=== PATIENT | female | born 1930 | race African-American/Black ===

== ENCOUNTER 2018-09-07 17:15 | Observation (INO) ==
--- NOTE | 2018-09-07 18:31 | ED ---
HPI General Chief Complaint: Chest Pain Stated Complaint: chest pain, headache, cateract surg 2 wks ago Time Seen by Provider: 09/07/18 18:10 Source: patient, RN notes reviewed and old records reviewed Mode of arrival: ambulatory Limitations: no limitations History of Present Illness HPI narrative: 88-year-old female presents to the emergency department family member at bedside for evaluation of chest pain. Patient states that she had left lower chest pain that started at 4 PM. She states that it was 8/10, throbbing, without radiation. She took one nitroglycerin that she has at home and the pain resolved. However after taking the nitroglycerin, she reported headache and dizziness. She states her symptoms are now resolved. Patient reports cough and congestion for the past week. 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 She denies having any recent stress testing or cardiac catheterization. Patient does have history of colon cancer, A. fib, hypertension. She recently had cataract surgery in the right eye approximately a month ago. She is on Eliquis. Moderate severity. MD complaint: Reports chest pain STEMI Alert: No Onset (ago): hour(s) (2.5) Time: 16:00 Duration: now resolved Onset: during rest Pain location: Reports left chest Severity: moderate Severity scale (1-10): 8 Quality: Reports other (throbbing) Pain radiation: Reports none Relieving factors: nitroglycerin Exacerbating factors: nothing Associated symptoms: Reports cough; Denies nausea, vomiting, syncope, palpitations and fever Related Data Home Medications Medication Instructions Recorded Confirmed atenolol 50 mg PO DAILY 09/07/18 09/07/18 furosemide 40 mg PO DAILY 09/07/18 09/07/18 lovastatin 10 mg PO DAILY 09/07/18 09/07/18 potassium chloride 20 meq PO DAILY 09/07/18 09/07/18 apixaban [Eliquis] 5 mg PO BID 09/08/18 09/08/18 Allergies Allergy/AdvReac Type Severity Reaction Status Date / Time Sulfa (Sulfonamide Allergy Severe Hives Verified 09/07/18 17:32 Antibiotics) Review of Systems ROS: all other systems reviewed are negative [facility] Family History Family History Mother Diabetes Social History Social History Substance History: No History of Abuse Second Hand Smoke Exposure: No Smoking Status: Never smoker How Often Do You Have a Drink Containing Alcohol: Never Recent Travel in [facility] within the Last 8 Weeks: No Recent Out of Country Travel within the Last 8 Weeks: No Immunization History Tetanus Immunization: >5 Years Exam Narrative Exam Narrative: GENERAL: Well-nourished, well-developed elderly female patient, ambulatory. Afebrile. SKIN: Focused skin assessment warm/dry. HEAD: Normocephalic. Atraumatic. ENT: Mucosa pink and moist. No erythema or exudates. No uvular edema. No uvular , palatal, or tonsillar deviation. Airway patent. Nasal turbinates appear normal without nasal blood, purulent drainage or septal hematoma. Bilateral tympanic membranes clear without erythema or perforation. EYES: No scleral icterus. No injection or drainage. NECK: Supple, trachea midline. No JVD or lymphadenopathy. CARDIOVASCULAR: Regular rate and rhythm without murmurs, gallops, or rubs. Bilateral radial and pedal pulses are 2+ RESPIRATORY: Breath sounds equal bilaterally. No accessory muscle use. Lung sounds are clear to auscultation GASTROINTESTINAL: Abdomen soft, non-tender, nondistended. MUSCULOSKELETAL: No cyanosis, or edema. Bilateral upper and lower extremity strength 5/5. All extremities are neurovascularly intact. BACK: Nontender without obvious deformity. No CVA tenderness. NEUROLOGICAL: Awake and alert. Cranial nerves II through XII intact. Motor and sensory grossly within normal limits. Five out of 5 muscle strength in all muscle groups. Normal speech. Finger to nose is normal bilaterally. Heel to sumner is normal bilaterally. Course Initial Documented Vital Signs Temperature 97.5 F L 09/07/18 17:19 Pulse Rate 89 09/07/18 17:19 Respiratory Rate 18 09/07/18 17:19 Blood Pressure 105/53 L 09/07/18 17:19 Pulse Oximetry 97 09/07/18 17:19 Last Documented Vital Signs Temperature 98.0 F 09/08/18 19:54 Pulse Rate 76 09/08/18 19:54 Respiratory Rate 17 09/08/18 19:54 Blood Pressure 116/58 L 09/08/18 19:54 Pulse Oximetry 96 09/08/18 19:54 Medical Decision Making MDM Narrative Medical decision making narrative: 88-year-old female presents to the emergency department for evaluation of chest pain, now resolved. She also reports headache and dizziness that is now resolved after taking nitro. IV access obtained. CBC, CMP, CK, troponin, magnesium, PTT, PT/INR, UA are ordered and pending. Chest x-ray is ordered and pending. CT of the brain is ordered and pending EKG shows atrial fibrillation, HR 127, no acute ST changes. CBC shows no acute abnormality. CMP shows BUN 19, creatinine 1.22. Magnesium is 1.9. PTT is 27.8. PT/INR is 13.3/1.3. Chest x-ray shows no acute cardiopulmonary disease. CT of the brain shows focal area of diminished attenuation in the left álvarez radiata extending up into the subcortical white matter tracts of the high parietal convexity concerning for possible vasogenic type edema. I cannot definitively identify cortical involvement to suggest a true infarct, MRI of the brain with and without gadolinium is recommended for further characterization. MRI of the head w/wo contrast is ordered and pending. Patient will be admitted for chest pain, r/o ACS, needs MRI for abnormal CT. Medical Screen Exam Complete: Yes Emergency Medical Condition: Yes Differential Diagnosis Differential Diagnosis: ACS versus chest wall pain versus pneumonia versus electrolyte abnormality Medical Records Medical records reviewed: Yes I reviewed the patient's medical records. Lab Data Result diagrams: 09/08/18 04:08 09/08/18 04:08 Lab Results 09/07/18 09/07/18 09/07/18 Range/Units 18:21 18:21 18:21 WBC 4.2 (4.0-11.0) th/mm3 RBC 4.59 (4.00-5.30) mil/mm3 Hgb 14.7 (11.6-15.3) gm/dL Hct 43.3 (35.0-46.0) % MCV 94.4 (80.0-100.0) fL MCH 32.0 (27.0-34.0) pg MCHC 33.9 (32.0-36.0) % RDW 14.6 (11.6-17.2) % Plt Count 225 (150-450) th/mm3 MPV 7.8 (7.0-11.0) fL Neut % (Auto) 40.5 (16.0-70.0) % Lymph % (Auto) 49.6 H (9.0-44.0) % Sumner % (Auto) 7.8 (0.0-8.0) % Eos % (Auto) 1.3 (0.0-4.0) % Baso % (Auto) 0.8 (0.0-2.0) % Neut # (Auto) 1.7 L (1.8-7.7) th/mm3 Lymph # (Auto) 2.1 (1.0-4.8) th/mm3 Sumner # (Auto) 0.3 (0.0-0.9) th/mm3 Eos # (Auto) 0.1 (0.0-0.4) th/mm3 Baso # (Auto) 0.0 (0.0-0.2) th/mm3 WBC Differential . Differential Comment Auto diff final PT 13.3 H (9.8-11.6) sec INR 1.3 Ratio APTT 27.8 (24.3-30.1) sec Sodium 140 (136-145) meq/L Potassium 4.1 (3.5-5.1) meq/L Chloride 105 (98-107) meq/L Carbon Dioxide 24.1 (21.0-32.0) meq/L Anion Gap 11 (5-15) meq/L BUN 19 H (7-18) mg/dL Creatinine 1.22 H (0.50-1.00) mg/dL Estimated GFR 51 L (>89) mL/min Random Glucose 103 (74-106) mg/dL Calcium 9.9 (8.5-10.1) mg/dL Magnesium 1.9 (1.5-2.5) mg/dL Total Bilirubin 1.2 H (0.2-1.0) mg/dL AST 30 (15-37) U/L ALT 26 (10-53) U/L Alkaline Phosphatase 115 (45-117) U/L Total Creatine Kinase 118 (26-192) U/L CK-MB (CK-2) Less than 1.0 (0.5-3.6) ng/mL Troponin I Less than 0.02 L (0.02-0.05) ng/mL Total Protein 9.1 H (6.4-8.2) g/dL Albumin 3.6 (3.4-5.0) g/dL 09/08/18 09/08/18 09/08/18 Range/Units 02:59 04:08 04:08 WBC 3.7 L (4.0-11.0) th/mm3 RBC 4.30 (4.00-5.30) mil/mm3 Hgb 13.7 (11.6-15.3) gm/dL Hct 40.1 (35.0-46.0) % MCV 93.1 (80.0-100.0) fL MCH 31.9 (27.0-34.0) pg MCHC 34.2 (32.0-36.0) % RDW 14.5 (11.6-17.2) % Plt Count 199 (150-450) th/mm3 MPV 7.5 (7.0-11.0) fL Neut % (Auto) 45.7 (16.0-70.0) % Lymph % (Auto) 42.0 (9.0-44.0) % Sumner % (Auto) 10.1 H (0.0-8.0) % Eos % (Auto) 1.2 (0.0-4.0) % Baso % (Auto) 1.0 (0.0-2.0) % Neut # (Auto) 1.7 L (1.8-7.7) th/mm3 Lymph # (Auto) 1.6 (1.0-4.8) th/mm3 Sumner # (Auto) 0.4 (0.0-0.9) th/mm3 Eos # (Auto) 0.0 (0.0-0.4) th/mm3 Baso # (Auto) 0.0 (0.0-0.2) th/mm3 WBC Differential . Differential Comment Auto diff final PT (9.8-11.6) sec INR Ratio APTT (24.3-30.1) sec Sodium 143 (136-145) meq/L Potassium 3.6 (3.5-5.1) meq/L Chloride 108 H (98-107) meq/L Carbon Dioxide 26.7 (21.0-32.0) meq/L Anion Gap 8 (5-15) meq/L BUN 18 (7-18) mg/dL Creatinine 0.96 (0.50-1.00) mg/dL Estimated GFR 67 L (>89) mL/min Random Glucose 76 (74-106) mg/dL Calcium 9.1 D (8.5-10.1) mg/dL Magnesium (1.5-2.5) mg/dL Total Bilirubin 1.0 (0.2-1.0) mg/dL AST 24 (15-37) U/L ALT 23 (10-53) U/L Alkaline Phosphatase 105 (45-117) U/L Total Creatine Kinase (26-192) U/L CK-MB (CK-2) (0.5-3.6) ng/mL Troponin I Less than 0.02 L Less than 0.02 L (0.02-0.05) ng/mL Total Protein 7.9 D (6.4-8.2) g/dL Albumin 3.2 L (3.4-5.0) g/dL 09/08/18 Range/Units 04:08 WBC (4.0-11.0) th/mm3 RBC (4.00-5.30) mil/mm3 Hgb (11.6-15.3) gm/dL Hct (35.0-46.0) % MCV (80.0-100.0) fL MCH (27.0-34.0) pg MCHC (32.0-36.0) % RDW (11.6-17.2) % Plt Count (150-450) th/mm3 MPV (7.0-11.0) fL Neut % (Auto) (16.0-70.0) % Lymph % (Auto) (9.0-44.0) % Sumner % (Auto) (0.0-8.0) % Eos % (Auto) (0.0-4.0) % Baso % (Auto) (0.0-2.0) % Neut # (Auto) (1.8-7.7) th/mm3 Lymph # (Auto) (1.0-4.8) th/mm3 Sumner # (Auto) (0.0-0.9) th/mm3 Eos # (Auto) (0.0-0.4) th/mm3 Baso # (Auto) (0.0-0.2) th/mm3 WBC Differential Differential Comment PT 12.9 H (9.8-11.6) sec INR 1.3 Ratio APTT (24.3-30.1) sec Sodium (136-145) meq/L Potassium (3.5-5.1) meq/L Chloride (98-107) meq/L Carbon Dioxide (21.0-32.0) meq/L Anion Gap (5-15) meq/L BUN (7-18) mg/dL Creatinine (0.50-1.00) mg/dL Estimated GFR (>89) mL/min Random Glucose (74-106) mg/dL Calcium (8.5-10.1) mg/dL Magnesium (1.5-2.5) mg/dL Total Bilirubin (0.2-1.0) mg/dL AST (15-37) U/L ALT (10-53) U/L Alkaline Phosphatase (45-117) U/L Total Creatine Kinase (26-192) U/L CK-MB (CK-2) (0.5-3.6) ng/mL Troponin I (0.02-0.05) ng/mL Total Protein (6.4-8.2) g/dL Albumin (3.4-5.0) g/dL Imaging Data Radiologist's impression: Chest X-Ray 09/07/18 18:22 CONCLUSION: 1. No acute cardiopulmonary disease. Head CT 09/07/18 18:22 CONCLUSION: 1. Focal area of diminished attenuation in the left álvarez radiata extending up into the subcortical white matter tracts of the high parietal convexity concerning for possible vasogenic type edema. I cannot definitively identify cortical involvement to suggest a true infarct. 2. MRI of the brain with and without gadolinium is recommended for further characterization. . Head MRI 09/07/18 19:05 CONCLUSION: 1. Mild senescent changes without acute intracranial abnormality. 2. Specifically, no abnormality to correspond to findings on CT exam. No acute infarction, hemorrhage or mass. Myocardial Perfusion Scan Nuc Med 09/08/18 00:00 CONCLUSION: 1. 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 Clinical correlation is recommended. 2. No reversible defect to suggest ischemia. 3. No focal wall motion abnormality. Discharge Plan Discharge Disposition Patient Disposition: 30 Still Patient Discharge Details Diagnosis: Chest pain, Cephalgia Physicians Team ED Provider: Suraj Miner ED Midlevel Provider: Rebeca Keene Primary Care Provider: Louis Dos Santos Attending Provider: Kiara Narayan Other Providers: Faith Alamo ED Status: Left Department Discharge Information Discharge Date/Time: 09/07/18 21:23
[2018-09-07 18:53] LABS: Baso % (Auto) 0.8 % (0.0-2.0); Eos # (Auto) 0.1 th/mm3 (0.0-0.4); Eos % (Auto) 1.3 % (0.0-4.0); Hematocrit 43.3 % (35.0-46.0); Hemoglobin 14.7 gm/dL (11.6-15.3); Lymph # (Auto) 2.1 th/mm3 (1.0-4.8); Lymph % (Auto) 49.6 % (9.0-44.0); Mean Corpuscular HGB Conc 33.9 % (32.0-36.0); Mean Corpuscular Volume 94.4 fL (80.0-100.0); Mean Platelet Volume 7.8 fL (7.0-11.0); Mono # (Auto) 0.3 th/mm3 (0.0-0.9); Mono % (Auto) 7.8 % (0.0-8.0); Neut # (Auto) 1.7 th/mm3 (1.8-7.7); Neut % (Auto) 40.5 % (16.0-70.0); Platelet Count 225 th/mm3 (150-450); Red Blood Count 4.59 mil/mm3 (4.00-5.30); Red Cell Distribution Width 14.6 % (11.6-17.2); White Blood Count 4.2 th/mm3 (4.0-11.0)
--- NOTE | 2018-09-07 19:00 | XR ---
EXAM DATE: 09/07/2018 6:54 PM EDT AGE/SEX: 88 years / Female INDICATIONS: Chest pain sudden onset. CLINICAL DATA: This is the patient's initial encounter. Patient reports that signs and symptoms have been present for 1 day and indicates a pain score of 3/10. MEDICAL/SURGICAL HISTORY: None. None. COMPARISON: [facility] – [place] SING[place] AP, 10/15/2016. . FINDINGS: No significant focal pleural or parenchymal opacities. The cardiomediastinal contours are stable. Os seous structures are intact. CONCLUSION: 1. No acute cardiopulmonary disease. Electronically signed by: Tim Medeiros MD 09/07/2018 6:58 PM EDT
--- NOTE | 2018-09-07 19:01 | CT ---
EXAM DATE: 09/07/2018 6:51 PM EDT AGE/SEX: 88 years / Female INDICATIONS: Headache and weakness. CLINICAL DATA: This is the patient's initial encounter. Patient reports that signs and symptoms have been present for 1 day and indicates a pain score of 10/10. MEDICAL/SURGICAL HISTORY: Carcinoma, colon. Hypertension. A-fib. . Colon resection. RADIATION DOSE: 50.59 CTDI (mGy) COMPARISON: [facility] – [place] BRAIN [place]AST, 10/14/2016. . TECHNIQUE: CT of the head without contrast. Using automated exposure control and adjustment of the mA and/or kV according to patient size, radiation dose was kept as low as reasonably achievable to ob tain optimal diagnostic quality images. DICOM format image data is available electronically for revi ew and comparison. FINDINGS: Cerebrum: The ventricles are normal for age. Area of diminished attenuation identified in the left álvarez radiata extending up into the subcortical white matter tracts of the high parietal convexity. Findings are concerning for vasogenic type edema. Second area of hypodensity in the right occiput I b elieve represents a prominent horizontal sulci. No extraaxial fluid collections are seen. Posterior Fossa: The cerebellum and brainstem are intact. The 4th ventricle is midline. The cerebe llopontine angle is unremarkable. Extracranial: The visualized portion of the orbits is intact. Skull: The calvaria is intact. No evidence of skull fracture. CONCLUSION: 1. Focal area of diminished attenuation in the left álvarez radiata extending up into the subcortical white matter tracts of the high parietal convexity concerning for possible vasogenic type edema. I c annot definitively identify cortical involvement to suggest a true infarct. 2. MRI of the brain with and without gadolinium is recommended for further characterization. . Electronically signed by: Sagar Whittaker MD 09/07/2018 7:00 PM EDT
[2018-09-07 19:05] LABS: Activated Partial Thrombo Time 27.8 sec (24.3-30.1); INR 1.3 Ratio; Prothrombin Time 13.3 sec (9.8-11.6)
[2018-09-07 19:24] LABS: Alanine Aminotransferase 26 U/L (10-53); Albumin 3.6 g/dL (3.4-5.0); Alkaline Phosphatase 115 U/L (45-117); Anion Gap 11 meq/L (5-15); Aspartate Aminotransferase 30 U/L (15-37); Blood Urea Nitrogen 19 mg/dL (7-18); Calcium 9.9 mg/dL (8.5-10.1); Carbon Dioxide 24.1 meq/L (21.0-32.0); Chloride 105 meq/L (98-107); Creatine Kinase 118 U/L (26-192); Glomerular Filtration Rate 51 mL/min (>89); Glucose,Random 103 mg/dL (74-106); Magnesium 1.9 mg/dL (1.5-2.5); Sodium 140 meq/L (136-145); Total Protein 9.1 g/dL (6.4-8.2)
[2018-09-07 19:25] LABS: Potassium 4.1 meq/L (3.5-5.1)
[2018-09-07] MEDS ORDERED: Gadobutrol PF 10 MMOL/10 ML Vial (for RAD) IV.SIG ONE (20:28)
[2018-09-07] MEDS ORDERED: Warfarin Consult Pharmacy OTHER PRN (20:29)
[2018-09-07] MEDS ORDERED: Bisacodyl 10 MG Supp RECTAL PRN (20:35)
--- NOTE | 2018-09-07 21:02 | MR ---
EXAM DATE: 09/07/2018 8:56 PM EDT AGE/SEX: 88 years / Female INDICATIONS: Cephalgia. Abnormal CT. CLINICAL DATA: This is the patient's initial encounter. Patient reports that signs and symptoms have been present for 1 day and indicates a pain score of 5/10. MEDICAL/SURGICAL HISTORY: Carcinoma, colon. Cholecystectomy. Colon resection. COMPAR[place]: [facility] [place], 09/07/2018. . TECHNIQUE: Multiplanar, multisequence examination of the brain was performed without and with 8 ml Ga davist (gadobutrol) contrast as a single exam dose. FINDINGS: Cerebrum: Mild diffuse cerebral atrophy. The ventricles are normal for age. No evidence of midline s hift, mass lesion, hemorrhage or acute infarction. No extraaxial fluid collections are seen. The pi tuitary gland and suprasellar cistern are normal in configuration. White Matter: Mild periventricular white matter T2 prolongation. Posterior Fossa: The cerebellum and brainstem are intact. The 4th ventricle is midline. The cerebel lopontine angle is unremarkable. The cerebellar tonsils are normal in position. Diffusion Imaging: No focal areas of restricted diffusion are seen. No evidence of acute infarction . Extracranial: The visualized portions of the orbits and paranasal sinuses are unremarkable. Post Contrast: No abnormal areas of parenchymal or dural enhancement. No evidence of blood-brain ba rrier breakdown. CONCLUSION: 1. Mild senescent changes without acute intracranial abnormality. 2. Specifically, no abnormality to correspond to findings on CT exam. No acute infarction, hemorrhag e or mass. Electronically signed by: Tim Medeiros MD 09/07/2018 9:01 PM EDT
[2018-09-07] MEDS: Sod Chloride 0.9% Inj 1,000 ML IV.CONT SCH (22:52)
[2018-09-08 05:09] LABS: Eos % (Auto) 1.2 % (0.0-4.0); Hematocrit 40.1 % (35.0-46.0); Hemoglobin 13.7 gm/dL (11.6-15.3); Lymph # (Auto) 1.6 th/mm3 (1.0-4.8); Mean Corpuscular HGB Conc 34.2 % (32.0-36.0); Mean Corpuscular Hemoglobin 31.9 pg (27.0-34.0); Mean Corpuscular Volume 93.1 fL (80.0-100.0); Mean Platelet Volume 7.5 fL (7.0-11.0); Mono # (Auto) 0.4 th/mm3 (0.0-0.9); Mono % (Auto) 10.1 % (0.0-8.0); Neut # (Auto) 1.7 th/mm3 (1.8-7.7); Neut % (Auto) 45.7 % (16.0-70.0); Platelet Count 199 th/mm3 (150-450); Red Cell Distribution Width 14.5 % (11.6-17.2); White Blood Count 3.7 th/mm3 (4.0-11.0)
[2018-09-08 05:19] LABS: INR 1.3 Ratio; Prothrombin Time 12.9 sec (9.8-11.6)
[2018-09-08 05:39] LABS: Alanine Aminotransferase 23 U/L (10-53); Albumin 3.2 g/dL (3.4-5.0); Alkaline Phosphatase 105 U/L (45-117); Anion Gap 8 meq/L (5-15); Aspartate Aminotransferase 24 U/L (15-37); Blood Urea Nitrogen 18 mg/dL (7-18); Calcium 9.1 mg/dL (8.5-10.1); Carbon Dioxide 26.7 meq/L (21.0-32.0); Chloride 108 meq/L (98-107); Glomerular Filtration Rate 67 mL/min (>89); Glucose,Random 76 mg/dL (74-106); Potassium 3.6 meq/L (3.5-5.1); Sodium 143 meq/L (136-145); Total Protein 7.9 g/dL (6.4-8.2)
[2018-09-08] MEDS: Atenolol 50 MG Tablet PO SCH (08:12)
[2018-09-08] MEDS ORDERED: Furosemide 40 MG Tablet PO SCH (09:00)
[2018-09-08] MEDS ORDERED: Regadenoson Inj 0.4 MG/5 ML Syringe IV.PUSH ONE (10:51)
--- NOTE | 2018-09-08 12:15 | NM ---
EXAM DATE: 09/08/2018 12:04 PM EDT AGE/SEX: 88 years / Female INDICATIONS:Angina. . Chest pain. CLINICAL DATA: This is the patient's initial encounter. Patient reports that signs and symptoms have been present for 1 day and indicates a pain score of 8/10. MEDICAL/SURGICAL HISTORY: Hypertension. Carcinoma, colon. a-fib. Colon resection. COMPARISON: No prior exams available for comparison. DOSE: 8.7 mCi Tc 99m Myoview at rest 26.5 mCi [id number] at stress 0.4 mg Lexiscan STRESS SYMPTOMS: Short of breath. EJECTION FRACTION: >70 % TECHNIQUE: The patient underwent pharmacologic stress with infusion of prescribed dose. Continuous ECG tracing was monitored during stress. Gated SPECT imaging was performed after stress and conventi onal SPECT imaging was performed at rest. The examination was performed on a SPECT/CT scanner, both attenuation and non-corrected datasets were reviewed. FINDINGS: Distribution: The maximum perfused segment at stress is in the lateral wall. Perfusion Study: There is evidence of fixed defect involving the anterior and apical poe suggesting LAD infarct. No reversible defects are noted to suggest ischemia. Gated Study: There are intact wall motion and wall thickening without hypokinetic or dyskinetic segm ents. The ejection fraction is calculated at >70%. RISK CATEGORY: Low (<1% Annual Motality Rate) CONCLUSION: 1. 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 Clinical correlatio n is recommended. 2. No reversible defect to suggest ischemia. 3. No focal wall motion abnormality. Electronically signed by: Akhil Patel MD 09/08/2018 12:14 PM EDT
--- NOTE | 2018-09-08 12:32 | P.HP ---
History of Present Illness Primary Care Physician: Louis Dos Santos History of Present Illness: Pleasant 88-year-old female presents to the emergency department family member at bedside for evaluation of chest pain. Patient states that she had left lower chest pain that started at 4 PM. She states that it was 8/10, throbbing, without radiation. She took one nitroglycerin that she has at home and the pain resolved. However after taking the nitroglycerin, she reported headache and dizziness. She states her symptoms are now resolved. Patient reports cough and congestion for the past week. She states her hot strip finisher is Dr. Alamo. She denies having any recent stress testing or cardiac catheterization. Patient does have history of colon cancer, A. fib, hypertension. She recently had cataract surgery in the right eye approximately a month ago. She is on Eliquis. Never had a stress test or cath. Review of Systems All other systems reviewed negative except as stated in [facility]PI [facility] - History History Provided By: Patient - Medical History Medical History: Medical History (Last Reviewed 09/08/18 @ 12:32 by Kiara Narayan MD) A-fib Colon cancer HTN (hypertension) - Surgical History Surgical History: Surgical History (Last Reviewed 09/08/18 @ 12:32 by Kiara Narayan MD) History of colon resection - Family History Family History: Family History (Last Updated 09/08/18 @ 13:06 by Kiara Narayan MD) Mother Diabetes - Social History I have reviewed the patient's Social History: Yes - Tobacco History Second Hand Smoke Exposure: No Smoking Status: Never smoker - Alcohol History How Often Do You Have a Drink Containing Alcohol: Never - Substance Use History Substance History: No History of Abuse - Travel History Recent Travel in the [place] Within the Last 8 Weeks: No Recent Travel Out of the Country Within the Last 8 Weeks: No - Immunization History Tetanus Immunization: >5 Years Medications and Allergies Active Medications: Active Medications Al Hydroxide/Mg Hydroxide (Milk Of Magnesia Liq) 30 ml PO Q12H PRN PRN Reason: Mild Constipation Atenolol (Tenormin) 50 mg PO DAILY [facility] Last Admin: 09/08/18 08:12 Dose: 50 mg Bisacodyl (Dulcolax Supp) 10 mg RECTAL DAILY PRN PRN Reason: SEVERE CONSITIPATION Furosemide (Lasix) 40 mg PO DAILY [facility] Last Admin: 09/08/18 08:12 Dose: 40 mg Sodium Chloride (Ns Inj) 1,000 mls @ 45 mls/hr IV.CONT .[id number] [facility] Last Infusion: 09/08/18 11:57 Dose: 45 mls/hr Lactulose (Lactulose Liq) 30 ml PO DAILY PRN PRN Reason: SEVERE CONSITIPATION Pharmacy Profile Note (Coumadin Consult Pharmacy) 1 each OTHER UNSCH PRN PRN Reason: PHARMACY DOCUMENTATION Potassium Chloride (K-Dur) 20 meq PO DAILY [facility] Last Admin: 09/08/18 08:12 Dose: 20 meq Pravastatin Sodium (Pravachol) 10 mg PO DAILY [facility] Last Admin: 09/08/18 08:12 Dose: 10 mg Sennosides (Senokot) 17.2 mg PO Q12H PRN PRN Reason: Moderate Constipation Sodium Chloride (Ns Flush) 2 ml IV.FLUSH UNSCH PRN PRN Reason: FLUSH AFTER USING IV ACCESS Warfarin Sodium (Coumadin) 4 mg PO DAILY@1600 [facility] Allergies Allergy/AdvReac Type Severity Reaction Status Date / Time Sulfa (Sulfonamide Allergy Severe Hives Verified 09/07/18 17:32 Antibiotics) Home Medications Medication Instructions Recorded Confirmed Type atenolol 50 mg PO DAILY 09/07/18 09/07/18 History furosemide 40 mg PO DAILY 09/07/18 09/07/18 History lovastatin 10 mg PO DAILY 09/07/18 09/07/18 History potassium chloride 20 meq PO DAILY 09/07/18 09/07/18 History apixaban [Eliquis] 5 mg PO BID 09/08/18 09/08/18 History Exam Vital signs: Vital Signs 09/07/18 17:19 09/07/18 18:18 09/07/18 19:00 Temperature 97.5 F L Pulse Rate 89 102 H 85 Respiratory Rate 18 18 16 Blood Pressure 105/53 L 129/86 113/69 Pulse Oximetry 97 99 98 09/07/18 21:42 09/08/18 00:00 09/08/18 04:00 Temperature 98.0 F 97.9 F 98.2 F Pulse Rate 72 80 67 Respiratory Rate 18 17 16 Blood Pressure 125/78 118/76 121/70 Pulse Oximetry 95 95 98 09/08/18 07:29 09/08/18 09:00 Temperature 98.2 F Pulse Rate 76 83 Respiratory Rate 16 Blood Pressure 135/63 Pulse Oximetry 97 Intake & Output 09/07/18 09/08/18 09/08/18 18:59 06:59 18:59 Intake Total 450 / 450 Balance 450 / 450 Weight 80.739 kg 80.739 kg Intake: IV 450 / 450 NS Inj 1,000 ML @ 45 mls/hr IV. 450 / 450 CONT .[id number] [facility] Rx#:[id number] Other: Date of Last Bowel Movement 09/06/18 09/08/18 Weight On Admission 80.739 kg Narrative: GENERAL: Pleasant 88 yo female, appears in nad. SKIN: Warm and dry. HEAD: Atraumatic. Normocephalic. EYES: Pupils equal and round. No scleral icterus. No injection or drainage. ENT: No nasal bleeding or discharge. Mucous membranes pink and moist. NECK: Trachea midline. No JVD. CARDIOVASCULAR: Regular rate and rhythm. RESPIRATORY: No accessory muscle use. Clear to auscultation. Breath sounds equal bilaterally. GASTROINTESTINAL: Abdomen soft, non-tender, nondistended. Hepatic and splenic margins not palpable. MUSCULOSKELETAL: Extremities without clubbing, cyanosis, or edema. No obvious deformities. NEUROLOGICAL: Awake and alert. No obvious cranial nerve deficits. Motor grossly within normal limits. Five out of 5 muscle strength in the arms and legs. Normal speech. PSYCHIATRIC: Appropriate mood and affect; insight and judgment normal. Results - Labs CBC & Chem 7: 09/08/18 04:08 09/08/18 04:08 Labs: Laboratory Results - last 24 hr 09/07/18 09/07/18 09/07/18 18:21 18:21 18:21 WBC 4.2 RBC 4.59 Hgb 14.7 Hct 43.3 MCV 94.4 MCH 32.0 MCHC 33.9 RDW 14.6 Plt Count 225 MPV 7.8 Neut % (Auto) 40.5 Lymph % (Auto) 49.6 H [place] % (Auto) 7.8 Eos % (Auto) 1.3 Baso % (Auto) 0.8 Neut # (Auto) 1.7 L Lymph # (Auto) 2.1 [place] # (Auto) 0.3 Eos # (Auto) 0.1 Baso # (Auto) 0.0 WBC Differential . Differential Comment Auto diff final PT 13.3 H INR 1.3 APTT 27.8 Sodium 140 Potassium 4.1 Chloride 105 Carbon Dioxide 24.1 Anion Gap 11 BUN 19 H Creatinine 1.22 H Estimated GFR 51 L Random Glucose 103 Calcium 9.9 Magnesium 1.9 Total Bilirubin 1.2 H AST 30 ALT 26 Alkaline Phosphatase 115 Total Creatine Kinase 118 CK-MB (CK-2) Less than 1.0 Troponin I Less than 0.02 L Total Protein 9.1 H Albumin 3.6 09/08/18 09/08/18 09/08/18 02:59 04:08 04:08 WBC 3.7 L RBC 4.30 Hgb 13.7 Hct 40.1 MCV 93.1 MCH 31.9 MCHC 34.2 RDW 14.5 Plt Count 199 MPV 7.5 Neut % (Auto) 45.7 Lymph % (Auto) 42.0 [place] % (Auto) 10.1 H Eos % (Auto) 1.2 Baso % (Auto) 1.0 Neut # (Auto) 1.7 L Lymph # (Auto) 1.6 [place] # (Auto) 0.4 Eos # (Auto) 0.0 Baso # (Auto) 0.0 WBC Differential . Differential Comment Auto diff final PT INR APTT Sodium 143 Potassium 3.6 Chloride 108 H Carbon Dioxide 26.7 Anion Gap 8 BUN 18 Creatinine 0.96 Estimated GFR 67 L Random Glucose 76 Calcium 9.1 D Magnesium Total Bilirubin 1.0 AST 24 ALT 23 Alkaline Phosphatase 105 Total Creatine Kinase CK-MB (CK-2) Troponin I Less than 0.02 L Less than 0.02 L Total Protein 7.9 D Albumin 3.2 L 09/08/18 04:08 WBC RBC Hgb Hct MCV MCH MCHC RDW Plt Count MPV Neut % (Auto) Lymph % (Auto) [place] % (Auto) Eos % (Auto) Baso % (Auto) Neut # (Auto) Lymph # (Auto) [place] # (Auto) Eos # (Auto) Baso # (Auto) WBC Differential Differential Comment PT 12.9 H INR 1.3 APTT Sodium Potassium Chloride Carbon Dioxide Anion Gap BUN Creatinine Estimated GFR Random Glucose Calcium Magnesium Total Bilirubin AST ALT Alkaline Phosphatase Total Creatine Kinase CK-MB (CK-2) Troponin I Total Protein Albumin - Imaging Impressions Chest X-Ray 09/07/18 18:22 CONCLUSION: 1. No acute cardiopulmonary disease. Head CT 09/07/18 18:22 CONCLUSION: 1. Focal area of diminished attenuation in the left álvarez radiata extending up into the subcortical white matter tracts of the high parietal convexity concerning for possible vasogenic type edema. I cannot definitively identify cortical involvement to suggest a true infarct. 2. MRI of the brain with and without gadolinium is recommended for further characterization. . Head MRI 09/07/18 19:05 CONCLUSION: 1. Mild senescent changes without acute intracranial abnormality. 2. Specifically, no abnormality to correspond to findings on CT exam. No acute infarction, hemorrhage or mass. Myocardial Perfusion Scan Nuc Med 09/08/18 00:00 CONCLUSION: 1. 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 Clinical correlation is recommended. 2. No reversible defect to suggest ischemia. 3. No focal wall motion abnormality. Caprini VTE Risk Assessment Caprini VTE Risk Assessment: Moderate/High Risk (score >= 2) Caprini Risk Assessment Model: Point Value = 1 Point Value = 2 Point Value = 3 Point Value = 5 Age 41-60 Minor surgery BMI > 25 kg/m2 Swollen legs Varicose veins or History of unexplained or recurrent spontaneous Oral contraceptives or hormone replacement Sepsis (< 1 month) Serious lung disease, including pneumonia (< 1 month) Abnormal pulmonary function Acute myocardial infarction Congestive heart failure (< 1 month) History of inflammatory bowel disease Medical patient at bed rest Age 61-74 Arthroscopic surgery Major open surgery (> 45 min) Laparoscopic surgery (> 45 min) Malignancy Confined to bed (> 72 hours) Immobilizing plaster cast Central venous access Age >= 75 History of VTE Family history of VTE Factor V Leiden Prothrombin [id number] Lupus anticoagulant Anticardiolipin antibodies Elevated serum homocysteine Heparin-induced thrombocytopenia Other congenital or acquired thrombophilia Stroke (< 1 month) Elective arthroplasty Hip, pelvis, or leg fracture Acute spinal cord injury (< 1 month) Prophylaxis Regimen: Total Risk Factor Score Risk Level Prophylaxis Regimen 0-1 Low Early ambulation 2 Moderate Order ONE of the following: *Sequential Compression Device (SCD) *Heparin 5000 units SQ BID 3-4 Higher Order ONE of the following medications: *Heparin 5000 units SQ TID *Enoxaparin/Lovenox 40 mg SQ daily (WT < 150 kg, CrCl > 30 mL/min) *Enoxaparin/Lovenox 30 mg SQ daily (WT < 150 kg, CrCl > 10-29 mL/min) *Enoxaparin/Lovenox 30 mg SQ BID (WT < 150 kg, CrCl > 30 mL/min) AND/OR *Sequential Compression Device (SCD) 5 or more Highest Order ONE of the following medications: *Heparin 5000 units SQ TID (Preferred with Epidurals) *Enoxaparin/Lovenox 40 mg SQ daily (WT < 150 kg, CrCl > 30 mL/min) *Enoxaparin/Lovenox 30 mg SQ daily (WT < 150 kg, CrCl > 10-29 mL/min) *Enoxaparin/Lovenox 30 mg SQ BID (WT < 150 kg, CrCl > 30 mL/min) AND *Sequential Compression Device (SCD) Assessment and Plan - Plan Chest pain r/o ACS H/o Afib with RVR on admission Trops neg x 2. Plan for Lexiscan. Cardiology, Dr Alamo is ff. Monitor on telemetry EKG on admission shows atrial fibrillation, HR 127, no acute ST changes. Mild SHAYNA with BUN 19, creatinine 1.22 on admission . Started on gentle IVF Elevated INR at 1.3, no signs of bleeding Chest x-ray reviewed shows no acute cardiopulmonary disease. CT of the brain shows focal area of diminished attenuation in the left álvarez radiata extending up into the subcortical white matter tracts of the high parietal convexity concerning for possible vasogenic type edema. I cannot definitively identify cortical involvement to suggest a true infarct, MRI of the brain with and without gadolinium is recommended for further characterization. MRI of the head w/wo contrast is ordered and pending. cont furosemide Continue statin , lipid panel pending Continue beta indira Continue home meds as appropriate DVT ppx eliquis . Discussed Condition With: patient, nurse
[2018-09-08] MEDS: Sod Chloride 0.9% Inj 1,000 ML IV.CONT SCH (21:30)
--- NOTE | 2018-09-08 23:57 | ECG ---
Date Performed: 09/08/2018 Time Performed: 09:24:10 PTAGE: 88 years EKG: ATRIAL FIBRILLATION SIGNIFICANT MOTION ARTIFACT IN THE LIMB LEADS ABNORMAL RHYTHM ECG NO PREVIOUS TRACING DOCTOR: Josh Layne Interpretating Date/Time 09/08/2018 23:55:56
--- NOTE | 2018-09-09 00:34 | ECG ---
Date Performed: 09/07/2018 Time Performed: 17:44:01 PTAGE: 88 years EKG: ATRIAL FIBRILLATION WITH RAPID VENTRICULAR RESPONSE MARKED LEFT AXIS DEVIATION ABNORMAL ECG NO PREVIOUS TRACING DOCTOR: Josh Layne Interpretating Date/Time 09/09/2018 00:32:36
[2018-09-09 04:30] LABS: INR 1.3 Ratio; Prothrombin Time 12.9 sec (9.8-11.6)
[2018-09-09 08:24] VITALS: BP 108/59; RESP 12; TEMP 97.4; O2SAT 93
--- NOTE | 2018-09-09 08:56 | P.PNCA ---
Subjective Interval history: Pt without complaints Medications and Allergies Active Medications: Active Medications Al Hydroxide/Mg Hydroxide (Milk Of Magnesia Liq) 30 ml PO Q12H PRN PRN Reason: Mild Constipation Apixaban (Eliquis) 5 mg PO BID [facility] Last Admin: 09/08/18 21:31 Dose: 5 mg Atenolol (Tenormin) 50 mg PO DAILY [facility] Last Admin: 09/08/18 08:12 Dose: 50 mg Bisacodyl (Dulcolax Supp) 10 mg RECTAL DAILY PRN PRN Reason: SEVERE CONSITIPATION Furosemide (Lasix) 20 mg PO DAILY [facility] Sodium Chloride (Ns Inj) 1,000 mls @ 45 mls/hr IV.CONT .[id number] [facility] Last Admin: 09/08/18 21:30 Dose: 45 mls/hr Lactulose (Lactulose Liq) 30 ml PO DAILY PRN PRN Reason: SEVERE CONSITIPATION Potassium Chloride (Kcl) 10 meq PO DAILY [facility] Pravastatin Sodium (Pravachol) 10 mg PO DAILY [facility] Last Admin: 09/08/18 08:12 Dose: 10 mg Sennosides (Senokot) 17.2 mg PO Q12H PRN PRN Reason: Moderate Constipation Sodium Chloride (Ns Flush) 2 ml IV.FLUSH UNSCH PRN PRN Reason: FLUSH AFTER USING IV ACCESS Allergies Allergy/AdvReac Type Severity Reaction Status Date / Time Sulfa (Sulfonamide Allergy Severe Hives Verified 09/07/18 17:32 Antibiotics) Home Medications Medication Instructions Recorded Confirmed Type atenolol 50 mg PO DAILY 09/07/18 09/07/18 History furosemide 40 mg PO DAILY 09/07/18 09/07/18 History lovastatin 10 mg PO DAILY 09/07/18 09/07/18 History potassium chloride 20 meq PO DAILY 09/07/18 09/07/18 History apixaban [Eliquis] 5 mg PO BID 09/08/18 09/08/18 History Physical Exam Vital signs: Vital Signs 09/08/18 09:00 09/08/18 12:00 09/08/18 16:00 Temperature 97.6 F 98.3 F Pulse Rate 83 70 68 Respiratory Rate 12 12 Blood Pressure 133/78 130/75 Pulse Oximetry 95 97 09/08/18 19:54 09/08/18 23:27 09/09/18 00:00 Temperature 98.0 F 98.0 F Pulse Rate 76 72 68 Respiratory Rate 17 16 Blood Pressure 116/58 L 115/75 Pulse Oximetry 96 97 09/09/18 01:28 09/09/18 03:56 09/09/18 08:00 Temperature 98.8 F 97.4 F L Pulse Rate 73 69 77 Respiratory Rate 17 12 Blood Pressure 99/59 L 108/59 L Pulse Oximetry 96 93 L Intake & Output 09/08/18 09/09/18 09/09/18 18:59 06:59 18:59 Intake Total 450 / 450 550 / 550 Balance 450 / 450 550 / 550 Intake: IV 450 / 450 550 / 550 NS Inj 1,000 ML @ 45 mls/hr IV. 450 / 450 550 / 550 CONT .[id number] [facility] Rx#:[id number] Other: Date of Last Bowel Movement 09/08/18 Results 09/08/18 04:08 09/08/18 04:08 Cardiac Enzymes 09/07/18 09/08/18 09/08/18 Range/Units 18:21 02:59 04:08 AST 30 24 (15-37) U/L CK-MB (CK-2) Less than 1.0 (0.5-3.6) ng/mL Troponin I Less than 0.02 L Less than 0.02 L Less than 0.02 L (0.02-0.05) ng/mL Coagulation 09/07/18 09/08/18 09/09/18 Range/Units 18:21 04:08 03:21 PT 13.3 H 12.9 H 12.9 H (9.8-11.6) sec APTT 27.8 (24.3-30.1) sec CBC 09/07/18 09/08/18 Range/Units 18:21 04:08 WBC 4.2 3.7 L (4.0-11.0) th/mm3 RBC 4.59 4.30 (4.00-5.30) mil/mm3 Hgb 14.7 13.7 (11.6-15.3) gm/dL Hct 43.3 40.1 (35.0-46.0) % Plt Count 225 199 (150-450) th/mm3 Neut # (Auto) 1.7 L 1.7 L (1.8-7.7) th/mm3 Lymph # (Auto) 2.1 1.6 (1.0-4.8) th/mm3 [place] # (Auto) 0.3 0.4 (0.0-0.9) th/mm3 Eos # (Auto) 0.1 0.0 (0.0-0.4) th/mm3 Baso # (Auto) 0.0 0.0 (0.0-0.2) th/mm3 Comprehensive Metabolic Panel 09/07/18 09/08/18 Range/Units 18:21 04:08 Sodium 140 143 (136-145) meq/L Potassium 4.1 3.6 (3.5-5.1) meq/L Chloride 105 108 H (98-107) meq/L Carbon Dioxide 24.1 26.7 (21.0-32.0) meq/L BUN 19 H 18 (7-18) mg/dL Creatinine 1.22 H 0.96 (0.50-1.00) mg/dL Calcium 9.9 9.1 D (8.5-10.1) mg/dL AST 30 24 (15-37) U/L ALT 26 23 (10-53) U/L Alkaline Phosphatase 115 105 (45-117) U/L Total Protein 9.1 H 7.9 D (6.4-8.2) g/dL Albumin 3.6 3.2 L (3.4-5.0) g/dL Intake and Output 09/08/18 09/09/18 09/09/18 22:59 06:59 14:59 Intake Total 550 / 550 Balance 550 / 550 Intake: IV 550 / 550 NS Inj 1,000 ML @ 45 mls/hr IV. 550 / 550 CONT .[id number] [facility] Rx#:[id number] - Imaging and Cardiology Imaging: Impressions Chest X-Ray 09/07/18 18:22 CONCLUSION: 1. No acute cardiopulmonary disease. Head CT 09/07/18 18:22 CONCLUSION: 1. Focal area of diminished attenuation in the left álvarez radiata extending up into the subcortical white matter tracts of the high parietal convexity concerning for possible vasogenic type edema. I cannot definitively identify cortical involvement to suggest a true infarct. 2. MRI of the brain with and without gadolinium is recommended for further characterization. . Head MRI 09/07/18 19:05 CONCLUSION: 1. Mild senescent changes without acute intracranial abnormality. 2. Specifically, no abnormality to correspond to findings on CT exam. No acute infarction, hemorrhage or mass. Myocardial Perfusion Scan Nuc Med 09/08/18 00:00 CONCLUSION: 1. 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 Clinical correlation is recommended. 2. No reversible defect to suggest ischemia. 3. No focal wall motion abnormality. Assessment and Plan - Plan Atypical CP- resolved, no ischemia on nuc AF -stable dispo- ok for d/c
[2018-09-09] MEDS ORDERED: Furosemide 20 MG Tablet PO SCH (09:00)
[2018-09-09] MEDS ORDERED: Potassium Chloride 10 MEQ ER Capsule PO SCH (09:00)
[2018-09-09] MEDS: Atenolol 50 MG Tablet PO SCH (09:13)
[2018-09-09 09:43] VITALS: PULSE 72
--- NOTE | 2018-09-09 10:54 | P.PN ---
Subjective Interval history: No pain overnight. No sob VSS no complaints Cleared bu cardio for DC Physical Exam Vital signs: Vital Signs 09/08/18 12:00 09/08/18 16:00 09/08/18 19:54 Temperature 97.6 F 98.3 F 98.0 F Pulse Rate 70 68 76 Respiratory Rate 12 12 17 Blood Pressure 133/78 130/75 116/58 L Pulse Oximetry 95 97 96 09/08/18 23:27 09/09/18 00:00 09/09/18 01:28 Temperature 98.0 F Pulse Rate 72 68 73 Respiratory Rate 16 Blood Pressure 115/75 Pulse Oximetry 97 09/09/18 03:56 09/09/18 08:00 09/09/18 09:00 Temperature 98.8 F 97.4 F L Pulse Rate 69 77 72 Respiratory Rate 17 12 Blood Pressure 99/59 L 108/59 L Pulse Oximetry 96 93 L Intake & Output 09/08/18 09/09/18 09/09/18 18:59 06:59 18:59 Intake Total 450 / 450 550 / 550 Balance 450 / 450 550 / 550 Intake: IV 450 / 450 550 / 550 NS Inj 1,000 ML @ 45 mls/hr IV. 450 / 450 550 / 550 CONT .[id number] [facility] Rx#:[id number] Other: Date of Last Bowel Movement 09/08/18 09/09/18 Narrative: GENERAL: Pleasant 88 yo female, appears in nad. CARDIOVASCULAR: Regular rate and rhythm. RESPIRATORY: No accessory muscle use. Clear to auscultation. Breath sounds equal bilaterally. GASTROINTESTINAL: Abdomen soft, non-tender, nondistended. Hepatic and splenic margins not palpable. MUSCULOSKELETAL: Extremities without clubbing, cyanosis, or edema. No obvious deformities. NEUROLOGICAL: Awake and alert. No obvious cranial nerve deficits. Motor grossly within normal limits. Five out of 5 muscle strength in the arms and legs. Normal speech. PSYCHIATRIC: Appropriate mood and affect; insight and judgment normal. Results - Labs CBC & Chem 7: 09/08/18 04:08 09/08/18 04:08 Laboratory Results - last 24 hr 09/09/18 03:21 PT 12.9 H INR 1.3 - Imaging Impressions Myocardial Perfusion Scan Nuc Med 09/08/18 00:00 CONCLUSION: 1. 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 Clinical correlation is recommended. 2. No reversible defect to suggest ischemia. 3. No focal wall motion abnormality. Assessment and Plan - Plan Chest pain r/o ACS H/o Afib with RVR on admission Trops neg x 2. Plan for Lexiscan. Cardiology, Dr Alamo is ff. Monitor on telemetry EKG on admission shows atrial fibrillation, HR 127, no acute ST changes. Mild SHAYNA with BUN 19, creatinine 1.22 on admission . Started on gentle IVF Elevated INR at 1.3, no signs of bleeding Chest x-ray reviewed shows no acute cardiopulmonary disease. CT of the brain shows focal area of diminished attenuation in the left álvarez radiata extending up into the subcortical white matter tracts of the high parietal convexity concerning for possible vasogenic type edema. I cannot definitively identify cortical involvement to suggest a true infarct, MRI of the brain with and without gadolinium is recommended for further characterization. MRI of the head w/wo contrast reviewed cont furosemide Continue statin , lipid panel reviewed Continue beta indira Continue home meds as appropriate Lakshmi scan with fixed defect. Cleared by cardiology for DC/ DC home in stabel condition to follow up as OP with PCP and consultants DVT ppx jaxson .
--- NOTE | 2018-09-09 11:28 | MB ---
cc: Faith Alamo MD DATE: 09/08/2018 REASON FOR CONSULTATION: Chest pain. HISTORY OF PRESENT ILLNESS: Ms. Perdue is an 88-year-old female who does have a history of hypertension and atrial fibrillation. She presented with intermittent episodes of chest pain. She rated it as moderate and it was throbbing. She did have some headache and dizziness, which progressed after she took a nitroglycerin. PAST MEDICAL HISTORY: Significant for atrial fibrillation, hypertension and colon cancer. SOCIAL HISTORY: The patient does not smoke. FAMILY HISTORY: Positive for diabetes. OUTPATIENT MEDICATIONS: Include: 1. Atenolol 50 mg a day. 2. Eliquis. 3. Lasix. 4. Potassium. 5. Pravastatin. ALLERGIES: SULFA. PHYSICAL EXAMINATION: VITAL SIGNS: Temperature 97.5 pulse 89, respirations 18, blood pressure 105/53. GENERAL: She is a well-appearing female, who is in no apparent distress. NECK: Free from JVD. LUNGS: Bilaterally decreased. CARDIOVASCULAR: She has an irregularly irregular rhythm. No rubs or gallops were appreciated. ABDOMEN: Soft. EXTREMITIES: Free from edema. LABORATORY DATA: Significant for a creatinine of 0.76. Her serial troponins are less than 0.02. IMPRESSION: Atypical chest pain - the patient certainly has multiple cardiac risk factors and has not had a stress test in a while. We will check a nuclear stress test. If the study is not ischemic it would be reasonable for her to be discharged home. Possible dehydration. The patient does appear a bit dry and has a poor p.o. fluid intake. I am going to give her fluids. Atrial fibrillation - the patient does appear well rate controlled. DISPOSITION: It would be reasonable for her to be discharged if the stress test is not ischemic. MD MIKAELA Ro/marga , 08:50 AM , 08:57 AM
--- NOTE | 2018-09-09 17:14 | P.DS ---
Date of admission: 09/07/18 20:14 Primary care physician: Louis Dos Santos Brief History from admission: Pleasant 88-year-old female presents to the emergency department family member at bedside for evaluation of chest pain. Patient states that she had left lower chest pain that started at 4 PM. She states that it was 8/10, throbbing, without radiation. She took one nitroglycerin that she has at home and the pain resolved. However after taking the nitroglycerin, she reported headache and dizziness. She states her symptoms are now resolved. Patient reports cough and congestion for the past week. She states her chief procurement officer is Dr. Alamo. She denies having any recent stress testing or cardiac catheterization. Patient does have history of colon cancer, A. fib, hypertension. She recently had cataract surgery in the right eye approximately a month ago. She is on Eliquis. Never had a stress test or cath. DS: Summary Hospital Course: Chest pain r/o ACS H/o Afib with RVR on admission Trops neg x 2. Plan for Lexiscan. Cardiology, Dr Alamo is ff. Monitor on telemetry EKG on admission shows atrial fibrillation, HR 127, no acute ST changes. Mild SHAYNA with BUN 19, creatinine 1.22 on admission . Started on gentle IVF Elevated INR at 1.3, no signs of bleeding Chest x-ray reviewed shows no acute cardiopulmonary disease. CT of the brain shows focal area of diminished attenuation in the left álvarez radiata extending up into the subcortical white matter tracts of the high parietal convexity concerning for possible vasogenic type edema. I cannot definitively identify cortical involvement to suggest a true infarct, MRI of the brain with and without gadolinium is recommended for further characterization. MRI of the head w/wo contrast reviewed cont furosemide Continue statin , lipid panel reviewed Continue beta indira Continue home meds as appropriate Lakshmi scan with fixed defect. Cleared by cardiology for DC/ DC home in stabel condition to follow up as OP with PCP and consultants DVT ppx eliqujorge luis . - Time Spent with Patient Total time spent providing and/or coordinating discharge services: Greater than 30 minutes - Quality: VTE Deep Vein Thrombosis/Pulmonary Embolism Present on Admission: No Exam Vital signs: Vital Signs 09/08/18 19:54 09/08/18 23:27 09/09/18 00:00 Temperature 98.0 F 98.0 F Pulse Rate 76 72 68 Respiratory Rate 17 16 Blood Pressure 116/58 L 115/75 Pulse Oximetry 96 97 09/09/18 01:28 09/09/18 03:56 09/09/18 08:00 Temperature 98.8 F 97.4 F L Pulse Rate 73 69 77 Respiratory Rate 17 12 Blood Pressure 99/59 L 108/59 L Pulse Oximetry 96 93 L 09/09/18 09:00 Temperature Pulse Rate 72 Respiratory Rate Blood Pressure Pulse Oximetry Intake & Output 09/08/18 09/09/18 09/09/18 18:59 06:59 18:59 Intake Total 450 / 450 550 / 550 Balance 450 / 450 550 / 550 Intake: IV 450 / 450 550 / 550 NS Inj 1,000 ML @ 45 mls/hr IV. 450 / 450 550 / 550 CONT .[id number] [facility] Rx#:[id number] Other: Date of Last Bowel Movement 09/08/18 09/09/18 Narrative: GENERAL: Pleasant 88 yo female, appears in nad. CARDIOVASCULAR: Regular rate and rhythm. RESPIRATORY: No accessory muscle use. Clear to auscultation. Breath sounds equal bilaterally. GASTROINTESTINAL: Abdomen soft, non-tender, nondistended. Hepatic and splenic margins not palpable. MUSCULOSKELETAL: Extremities without clubbing, cyanosis, or edema. No obvious deformities. NEUROLOGICAL: Awake and alert. No obvious cranial nerve deficits. Motor grossly within normal limits. Five out of 5 muscle strength in the arms and legs. Normal speech. PSYCHIATRIC: Appropriate mood and affect; insight and judgment normal. Results Procedures completed during hospitalization: no procedures Labs on day of discharge: Labs from last 24 hours 09/09/18 03:21 PT 12.9 H INR 1.3 - Impressions ITS Impressions Chest X-Ray 09/07/18 18:22 CONCLUSION: 1. No acute cardiopulmonary disease. Head CT 09/07/18 18:22 CONCLUSION: 1. Focal area of diminished attenuation in the left álvarez radiata extending up into the subcortical white matter tracts of the high parietal convexity concerning for possible vasogenic type edema. I cannot definitively identify cortical involvement to suggest a true infarct. 2. MRI of the brain with and without gadolinium is recommended for further characterization. . Head MRI 09/07/18 19:05 CONCLUSION: 1. Mild senescent changes without acute intracranial abnormality. 2. Specifically, no abnormality to correspond to findings on CT exam. No acute infarction, hemorrhage or mass. Myocardial Perfusion Scan Nuc Med 09/08/18 00:00 CONCLUSION: 1. 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 Clinical correlation is recommended. 2. No reversible defect to suggest ischemia. 3. No focal wall motion abnormality. Discharge Plan - Discharge Disposition Patient Disposition: 01 Discharge Home - Discharge Condition Condition: Stable - Discharge Order Discharge Orders: Discharge Order (Routine); Ordered 09/09/18 Ordered By: Kiara Narayan Cardiology Clear for Discharge (Routine); Ordered 09/09/18 Ordered By: Faith Alamo - Discharge Details Anticipated Discharge Date: 09/09/18 - Physicians Team Primary Care Provider: Louis Dos Santos Attending Provider: Kiara Narayan Other Providers: Faith Alamo MD
== END 2018-09-09 11:05 | disposition home or self-care (01) ==
LOC: NEPC 17:15 → NEDA 17:15 → NEPFCDU 21:23
PROVIDERS: ADMIT Hospitalist; ATTEND Hospitalist